=== PATIENT | female | born 2000 | race Caucasian/White ===

== ENCOUNTER 2022-03-04 20:48 | Emergency (ER) | payer BC ==
[~2022-03-04] VITALS: Ht 162.6 cm; Wt 54.4 kg
--- NOTE | 2022-03-04 20:50 | NUR ---
Dr. Pretty at bedside for MSE.
[2022-03-04] MEDS ORDERED: IV NORMAL SALINE 1000 ML BAG IV ONE (21:00)
[2022-03-04] MEDS ORDERED: THIAMINE HCL 200 MG/2 ML VIAL IV ONE (21:00)
[2022-03-04 21:25] LABS: CARBON DIOXIDE 28 mmol/L (21-32); CHLORIDE 102 mmol/L (98-107); CREATININE 0.7 mg/dL (0.6-1.3); GLUCOSE 97 mg/dL (74-106); POTASSIUM 2.9 mmol/L (3.5-5.1); UREA NITROGEN, BLOOD 9 mg/dL (7-18)
[2022-03-04 21:26] LABS: MEAN CORPUSCULAR HEMOGLOBIN 31.1 uug (24.7-32.8); MEAN CORPUSCULAR VOLUME 92.2 fL (75.5-95.3); PLATELET COUNT (AUTO) 265 K/uL (179-408)
[2022-03-04 21:30] LABS: ALANINE AMINOTRANSFERASE 18 U/L (14-59); ALKALINE PHOSPHATASE 80 U/L (50-136); ASPARTATE AMINOTRANSFERASE 15 U/L (15-37); BILIRUBIN,TOTAL 0.1 mg/dL (0.2-1.0); TOTAL PROTEIN, SERUM 6.7 g/dL (6.4-8.2)
[2022-03-04] MEDS ORDERED: THIAMINE HCL 200 MG/2 ML VIAL ONE (21:44)
[2022-03-04 21:58] LABS: ETHANOL 395 MG/DL (0-0)
[2022-03-04 22:03] LABS: ACETAMINOPHEN < 10.0 ug/mL (10-30)
[2022-03-04 22:06] LABS: BILIRUBIN,DIRECT < 0.1 mg/dL (0.0-0.2)
[2022-03-04] MEDS ORDERED: POTASSIUM CHLORIDE 200 ML ONE (22:20)
[2022-03-04] MEDS: POTASSIUM CHLORIDE 50 ML IV SCH (22:29)
[2022-03-04] MEDS ORDERED: CYANOCOBALAMIN 1000 MCG/ML VIAL IM ONE (23:30)
[2022-03-05] MEDS: POTASSIUM CHLORIDE 50 ML IV SCH ×2 (00:04→00:05)
[2022-03-05] MEDS ORDERED: CYANOCOBALAMIN 1000 MCG/ML VIAL ONE (01:06)
[2022-03-05 01:26] LABS: *AMPHETAMINE, URINE NEGATIVE (NEGATIVE); *CANNABINOID, URINE POSITIVE (NEGATIVE); *COCCAINE, URINE NEGATIVE (NEGATIVE); *OPIATE, URINE NEGATIVE (NEGATIVE); *PHENCYCLIDINE SCREEN,URINE NEGATIVE (NEGATIVE)
[2022-03-05] MEDS ORDERED: SYRI-29 MC (01:31)
[2022-03-05] MEDS ORDERED: CYAN10006 IM (01:31)
[2022-03-05 01:34] LABS: *BILIRUBIN,URIN NEGATIVE (NEGATIVE); *BLOOD, URINE NEGATIVE (NEGATIVE); *CLARITY,URINE CLEAR (CLEAR); *KETONES,URINE NEGATIVE (NEGATIVE); *UROBILINOGEN,URINE 0.2 E.U./dl (NORMAL); LEUKOCYTE ESTERASE ,URINE NEGATIVE (NEGATIVE); NITRITE, URINE NEGATIVE (NEGATIVE); PH,URINE 5.5 (5.0-8.0); UGLUCOSE NEGATIVE (NEGATIVE)
[2022-03-05 01:35] LABS: *COLOR,URINE COLORLESS (YELLOW)
--- NOTE | 2022-03-05 01:42 | NUR ---
Patient discharged to home in stable condition. Written and verbal after care instructions given. Patient verbalizes understanding of instructions. Stressed follow up or return to ER for worsening s/s. Patient went home with mother and had steady gait and vitals. A&Ox3, discontinued IV. -[facility]
[2022-03-05 01:44] VITALS: BP 108/53
== END 2022-03-05 01:50 | disposition home or self-care (01) ==
LOC: ER 20:52
DX: F10.129 Alcohol abuse with intoxication, unspecified (principal); Y90.8 Blood alcohol level of 240 mg/100 ml or more; F41.9 Anxiety disorder, unspecified; F32.A Depression, unspecified; E87.6 Hypokalemia
CPT/HCPCS: 80076; 80048; 82607; 83735; 85025; 36415; 99285; 96365; 96366 ×2; 96375; 80299; 80320; 80307; 81003; 96372; J3480; J3411; J7040 ×2; J3420; G0480